=== PATIENT | female | born 1955 | race Caucasian/White ===

== ENCOUNTER → 2020-03-15 15:16 | Outpatient (BNVA) | payer SELFPAY | PROVIDERS: PCP Internal Medicine Medical Oncology; Referring Provider Internal Medicine Medical Oncology; Visit Provider Internal Medicine Gastroenterology | DX: Z76.89 Persons encountering health services in other specified circumstances (principal) ==

== ENCOUNTER 2023-06-20 14:07 | Outpatient (AMB) | payer MEDICARE, SELFPAY ==
--- NOTE | 2023-06-20 14:28 | MHC.OFFVIS ---
Intake Intake Visit Reasons: Nausea/weight loss Intake Note: Patient new consult for nauseas/weight loss. Patient cc: Nauseas, gassy on and off, heartburn, Sara, and between diarrhea and constipation. Wood Heel Attacher Required: No Allergies oxycodone [OXYCODONE] Allergy (Intermediate, Verified 06/20/23 14:23) DIZZY/NAUSEA Medication List - Last Reconciled 06/20/23 by Brandy Willis PA-C atenolol 100 mg PO DAILY bupropion HCl 100 mg PO DAILY ibuprofen 800 mg PO Q8H metformin 500 mg PO DAILY ropinirole 1 mg PO BID sertraline 100 mg PO Q24H simvastatin 40 mg PO BEDTIME warfarin (Jantoven) 5 mg PO DAILY HPI HPI Comments History of Present Illness Details [phone] A 68-year-old diabetic female on metformin long-term referred with nausea and weight loss unable to present in the office today has requested tele visit. She has had diarrhea since 04/04 On history or diarrhea as well as weight loss. However she admits she is very depressed taking antidepressants have affected her appetite She increase dose of antidepressant-in the last 3 or 4 weeks, she has no S/H/I.She had a friend at her home with her (she spoke to her in back round) She admits she would small portions she does not get nausea- she is happy losing wt- she is overwt- She had been taking Benefiber- She does take Imodium for diarrhea that is helpful she uses when she goes out. She can have 3-4 loose stools a day-she is taking metformin since 2013 She had last seen Dr. Sotelo in 2019 4 IBS/diarrhea She had a colonoscopy 07/2017-for history of polyps as well as diarrhea-biopsies negative for H pylori, negative for microscopic colitis She had a colonoscopy normal August 2018-while she was admitted for a fractured hip prior to going to rehab due to positive blood stool. [facility] Medical History (Updated 06/22/23 @ 13:14 by Brandy Willis PA-C) Tubular adenoma of colon On anticoagulant therapy Hx of pulmonary embolus Anxiety and depression Hyperlipidemia Hypertension Irritable bowel syndrome with diarrhea Surgical History H/O esophagogastroduodenoscopy H/O colonoscopy Family History Father Hypertension Macular degeneration Mother Polio Diabetes Hypertension Maternal Grandmother Cancer Social History Household Members: Friend(s) Housing: House Alcohol intake: current Alcohol intake frequency: does not drink Review of Systems Card Denies chest pain and Denies dyspnea Resp Denies dyspnea GI Denies abdominal pain, Reports diarrhea and Reports nausea Assessment & Plan Assessment & Plan (1) Irritable bowel syndrome with diarrhea: Comment: HX unclear- symptoms- inconsistent- Code(s): K58.0 - Irritable bowel syndrome with diarrhea (2) Weight loss: Comment: depressed- typically doesn't eat when depressed- MLC- Code(s): R63.4 - Abnormal weight loss Plan stool studies update labs Orders: Orders GI Panel 06/20/23 R19.7 - Diarrhea, unspecified Comprehensive Met. Panel 06/20/23 K58.9 - Irritable bowel syndrome without diarrhea Thyroid Stimulating Hormone 06/20/23 R19.8 - Other specified symptoms and signs involving the digestive system and abdomen Transglutaminase IgA 06/20/23 R19.7 - Diarrhea, unspecified CDiff Gene PCR 06/20/23 R19.7 - Diarrhea, unspecified Complete Blood Count Auto Diff 06/20/23 K52.9 - Noninfective gastroenteritis and colitis, unspecified Endomysial IgA rflx Titer 06/20/23 K58.0 - Irritable bowel syndrome with diarrhea, R63.4 - Abnormal weight loss Patient Instructions: A 68 y/o female- chronic diarrhea- sx somewhat inconsistent- will get stool studies labs f/u with pcp-for non GI encouraged to call with questions or concerns Telehealth Telehealth Location of provider rendering services: practice address Location of patient: address on file Patient Identification confirmed using: Name, : Yes Telehealth method: voice only Patient verbally consented to treatment: Yes Patient verbally consented to billing insurance company: Yes Patient informed of any privacy concerns related to visit: Yes Minutes spent on Phone/Video with Pt.: 30 Coding Level of Care Code Tele New Pt Level 3 (05294) Diagnoses Irritable bowel syndrome with diarrhea K58.0 Weight loss R63.4 Time Spent (min) 25
== END 2023-06-20 15:31 | disposition home or self-care (01) ==
LOC: HO.HGI 14:07
PROVIDERS: PCP Internal Medicine Medical Oncology; Visit Provider Physician Assistant
DX: K58.0 Irritable bowel syndrome with diarrhea (principal); R63.4 Abnormal weight loss
CPT/HCPCS: 99443

== ENCOUNTER → 2023-06-20 14:07 | Outpatient (BNVA) | payer MEDICARE, SELFPAY | PROVIDERS: PCP Internal Medicine Medical Oncology; Visit Provider Physician Assistant ==

== ENCOUNTER 2023-06-27 15:55 | Outpatient (REF) | payer MEDICARE, SELFPAY ==
[2023-06-27 16:20] LABS: MANUAL DIFF FLAG NO
[2023-06-27 17:26] LABS: Basophils Percent Auto 0.5 % (0-2); Eosinophils Absolute Auto 0.1 X10*3/uL (0.0-0.4); Hematocrit 43.3 % (37.0-47.0); Imm Gran Abs Auto 0.05 X10*3/uL (0.00-0.03); Imm Gran Pct Auto 0.6 % (0.0-0.4); Lymphocytes Absolute Auto 1.4 X10*3/uL (1.2-4.9); Lymphocytes Percent Auto 16.2 % (20-40); Mean Corpuscular HGB Conc 34.6 g/dl (31.0-35.0); Mean Corpuscular Hemoglobin 29.4 pg (27.0-33.0); Mean Corpuscular Volume 84.9 fL (80.0-98.0); Mean Platelet Volume 10.8 fL (9.4-12.3); Monocytes Absolute Auto 0.5 X10*3/uL (0.1-1.2); Monocytes Percent Auto 6.1 % (2-11); Neutrophils Absolute Auto 6.6 x10*3/uL (2.0-8.3); Neutrophils Percent Auto 75.6 % (45-73); Platelet Count 172 X10*3/uL (160-400); Red Cell Distribution Width 13.3 % (11.0-16.0); White Blood Count 8.7 X10*3/uL (4.8-10.8)
[2023-06-27 18:06] LABS: Erythrocyte Sedimentation Rate 8 MM/HR (0-20)
[2023-06-27 18:14] LABS: Alanine Aminotransferase 17 U/L (0-31); Alkaline Phosphatase 78 U/L (39-117); Anion Gap 17 (12-20); Aspartate Amino Transferase 19 U/L (5-31); Bilirubin Total 0.9 mg/dL (0.0-1.0); Blood Urea Nitrogen 25 mg/dL (9-16); Calcium 9.6 mg/dL (8.4-10.2); Carbon Dioxide 20 mmol/L (22-29); Chloride 105 mmol/L (96-108); Estimated Glomerular Filt Rate 27; Glucose Random 159 mg/dL (60-115); Sodium 138 mmol/L (135-145); Total Protein 7.4 g/dL (6.5-8.0)
[2023-06-27 18:33] LABS: Thyroid Stimulating Hormone 2.88 uIU/mL (0.32-4.0)
[2023-06-28 21:44] LABS: Transglutaminase IgA <1.0 U/mL
[2023-06-30 16:38] LABS: Endomysial IgA Antibody Negative (Negative)
== END 2023-06-27 15:56 | disposition home or self-care (01) ==
LOC: HO.LAB 15:55
PROVIDERS: Absent Provider Internal Medicine Medical Oncology; PCP Internal Medicine Medical Oncology; Visit Provider Physician Assistant
DX: K58.0 Irritable bowel syndrome with diarrhea (principal); E66.9 Obesity, unspecified; R63.4 Abnormal weight loss; E03.9 Hypothyroidism, unspecified; E11.9 Type 2 diabetes mellitus without complications; K52.9 Noninfective gastroenteritis and colitis, unspecified; R19.8 Other specified symptoms and signs involving the digestive system and abdomen
CPT/HCPCS: 36415; 80053; 84443; 85025; 85652; 86231; 86364

== ENCOUNTER 2023-09-20 13:24 | Outpatient (REF) | payer MEDICARE, SELFPAY | END 2023-09-20 13:25 | disposition home or self-care (01) | LOC: HO.LNP 13:24 | PROVIDERS: Visit Provider Internal Medicine Medical Oncology | DX: R07.0 Pain in throat (principal) | CPT/HCPCS: 87070 ==

== ENCOUNTER 2023-09-27 17:10 | Outpatient (REF) | payer MEDICARE, SELFPAY ==
[2023-09-27 18:33] LABS: CDiff Gene PCR NEGATIVE (Negative)
[2023-09-28 11:07] LABS: Adenovirus F 40/41 Not Detected (Not Detect.); Astrovirus Not Detected (Not Detect.); Campylobacter Not Detected (Not Detect.); Cryptosporidium Not Detected (Not Detect.); Cyclospora cayetanensis Not Detected (Not Detect.); E. coli EAEC Not Detected (Not Detect.); E. coli EPEC Not Detected (Not Detect.); E. coli ETEC Not Detected (Not Detect.); E. coli STEC Not Detected (Not Detect.); Entamoeba histolytica Not Detected (Not Detect.); Giardia lamblia Not Detected (Not Detect.); Norovirus GI/GII Not Detected (Not Detect.); Plesiomonas shigelloides Not Detected (Not Detect.); Rotavirus A Not Detected (Not Detect.); Salmonella Not Detected (Not Detect.); Sapovirus Not Detected (Not Detect.); Shigella sp./EIEC Not Detected (Not Detect.); Vibrio Not Detected (Not Detect.); Vibrio Cholerae Not Detected (Not Detect.); Yersinia enterocolitica Not Detected (Not Detect.)
== END 2023-09-27 17:11 | disposition home or self-care (01) ==
LOC: HO.LNP 17:10
PROVIDERS: Visit Provider Physician Assistant
DX: R19.7 Diarrhea, unspecified (principal)
CPT/HCPCS: 87493; 87507

== ENCOUNTER 2025-02-03 14:08 | Outpatient (AMB) | payer MEDICARE, SELFPAY ==
--- OUTSIDE RECORDS SUMMARY | 2024-07-11 06:09 | XMS_ITS ---
Author Organization Bravo Antonio III, MD Address [address] [place] [address] [place] [address] Care Team Providers Care Lead Sustainability Specialist Name Role Phone Dr. Bravo Antonio III Primary Care Provider REASON FOR VISIT Rx Refill Medications Medication SIG (Take, Route, Fr equency, Duration) Notes Start Date End Date Status Loperamide HCl 2 MG 1 capsule Orally Four times a day for 30 days As needed 07/11/2024 01/07/2025 Active Social History Sex Assigned At : Social History Observation Description Sex Assigned At Female Encounters Encounter Location Date Provider Diagnosis Bravo Antonio III, MD [address] [place] [address] [address] [place] [facility] [place] [address] 07/11/2024 Bravo Antonio Plan Of Treatment Medication Medication Name Sig Start Date Stop Date Notes Loperamide HCl 2 MG 1 capsule Orally Fou r times a day for 30 days 07/11/2024 01/07/2025 Next Appt Details Provider Name:Bravo Antonio , 03/25/2025 02:00:00 PM, [address] [place] [address] [place], [address], Progress Notes * Pramod APODACA: [birth year] (69 yo F)Acc No.[id number]:07/11/2024 Patient: Krupa DANIEL :1955 A ge:69 Y S ex:Female Address:[address] [place] [phone] * Refills Start Loperamide HCl Capsule, 2 MG, Orally, 120 Capsule, 1 capsule, Four times a day, 30 days, Refills=5 * true * Date: Generated for Gill navarro/Vianey/Yenniitting on: 07:01 PM EDT
--- OUTSIDE RECORDS SUMMARY | 2024-09-04 06:08 | XMS_ITS ---
Author Organization Bravo Antonio III, MD Address [address] [place] [address] [place] [address] Care Team Providers Care Pipe Welder Name Role Phone Dr. Bravo Antonio III Primary Care Provider [phone] REASON FOR VISIT PA needed for simvastatin Social History Sex Assigned At : Social History Observation Description Sex Assigned At Female Encounters Encounter Location Date Provider Diagnosis Bravo Antonio III, MD [address] [place] [address] [place] [address] 09/04/2024 Bravo Antonio Plan Of Treatment Next Appt Details Provider Name:Bravo Antonio , 03/25/2025 02:00:00 PM, [address] [place] [address] [place], [address], Progress Notes * Warner METCALFaDOB: [birth year] (69 yo F)Acc No.[id number]:09/04/2024 Patient: Krupa DANIEL :1955 A ge:69 Y S ex:Female Address:[address] [place] [phone] * true * Date: Generated for [facility]/Faxing/eTransmitting on: 07:02 PM EDT
--- OUTSIDE RECORDS SUMMARY | 2024-09-29 09:22 | XMS_ITS ---
Author Organization Bravo Antonio III, MD Address [address] [place] [address] [place] [address] Care Team Providers Care Underground Foreman Name Role Phone Dr. Bravo Antonio III Primary Care Provider REASON FOR VISIT PA approval Social History Sex Assigned At : Social History Observation Description Sex Assigned At Female Encounters Encounter Location Date Provider Diagnosis Bravo Antonio III, MD [address] [place] [address] [place] [address] 09/29/2024 Bravo Antonio Plan Of Treatment Next Appt Details Provider Name:Bravo Antonio , 03/25/2025 02:00:00 PM, [address] [place] [address] [place], [address], Progress Notes * Warner METCALFHowardB: [birth year] (69 yo F)Acc No.[id number]:09/29/2024 Patient: Krupa DANIEL :1955 A ge:69 Y S ex:Female Address:[address] [place] [phone] * true * Date: Generated for [facility]/Faxing/eTransmitting on: 07:01 PM EDT
--- OUTSIDE RECORDS SUMMARY | 2024-10-03 09:31 | XMS_ITS ---
Author Organization Bravo Antonio III, MD Address [address] [place] [address] [place] [address] Care Team Providers Care Air Conditioning Engineer Name Role Phone Dr. Bravo Antonio III Primary Care Provider REASON FOR VISIT Urine & Mammo Social History Sex Assigned At : Social History Observation Description Sex Assigned At Female Encounters Encounter Location Date Provider Diagnosis Bravo Antonio III, MD [address] [place] [address] [place] [phone] 10/03/2024 Bravo Antonio Plan Of Treatment Next Appt Details Provider Name:Bravo Antonio , 03/25/2025 02:00:00 PM, [address] [place] [address] [place], [address], Progress Notes * CONSTANZAWarneraDOB: [birth year] (69 yo F)Acc No.[id number]:10/03/2024 Patient: Krupa DANIEL :1955 A ge:69 Y S ex:Female Address:[address] [place] [phone] * true * Date: Generated for [facility]/Faxing/eTransmitting on: 07:01 PM EDT
--- OUTSIDE RECORDS SUMMARY | 2024-10-08 11:30 | XMS_ITS ---
Author Organization Bravo Antonio III, MD Address [address] [place] [address] [address] [place] [phone] Care Team Providers Care Electrifier Operator Name Role Phone Dr. Bravo Antonio III Primary Care Provider [phone] Allergies Allergen (clinical drug ingredient) Drug/Non Drug Allergy documented on EMR Reaction Allergy Type Onset Date Status Iodine-Potassium Iodide Lips burn Drug Allergy Active REASON FOR VISIT Hypertension, Depression, History of pulmonary embolism, Anticoagulation, Lumbar radiculopathy, Hyperlipidemia, Diabetes, Hypothyroidism Medications Medication SIG (Take, Route, Frequency, Duration) Notes Start Date End Date Status Omeprazole 20 MG 1 capsule 30 minutes before morning meal Orally Once a day Active Sertraline HCl 100 MG 3 tablets`` Orally Once a day 05/16/2023 Active buPROPion HCl ER (XL) 300 MG 1 tablet in the morning Orally Once a day 05/16/2023 Active rOPINIRole HCl 1 MG 1 tablet 1 to 3 hour s before bedtime Orally Once a day Active Warfarin Sodium 5mg 1 tablet Orally Once a day Active Atenolol 100 MG TAKE ONE TABLET BY M OUTH EVERY DAY Active Loperamide HCl 2 MG 1 capsule Orally Four times a day As needed 07/11/2024 Active Latanoprost 0.005 % INSTILL ONE DROP IN EACH EYE AT BEDTIME Ophthalmic Active ibuprofen 1 tab Oral Active Vitamin D 1000 UNIT 1 tablet Orally Once a day 01/20/2019 Active Omeprazole 20 MG 1 capsule 30 minutes before morning meal Orally Once a day Active Simvastatin 40mg one tablet Orally 2 tablets (80mg) daily Active metFORMIN HCl 500 MG TAKE ONE TABLET BY MOUTH EVERY DAY Active Fluticasone Propionate 50 MCG/ACT 1 spray in each nostril Nasally Twice a day Active Jantoven 5 MG TAKE ONE TABLET BY M OUTH EVERY DAY Active Probiotic 1-250 BILLION-MG as directed Orally Active Social History Tobacco Use: Social History Observation Description Date Details (start date - stop date) Never Smoker NA - NA Sex Assigned At : Social History Observation Description Sex Assigned At Female Tobacco Use/Smoking Question Answer Notes Patient is a nonsmoker Additional Findings: Tobacco Non-User Aggressive non-smoker Vital Signs Temperature 98.2 degrees Fahrenheit 10/09/19 Blood pressure systolic 140 mm Hg 10/09/19 Blood pressure diastolic 80 mm Hg 025 Heart Rate 62 /min 10/08/2024 Respiratory Rate 16 /min 10/08/2024 Height 74 in 10/08/2024 Weight 229 lbs 10/08/2024 BMI 29.4 kg/m2 10/08/2024 Oximetry 96 % 10/08/2024 Encounters Encounter Location Date Provider Diagnosis Bravo Antonio III, MD [address] [place] [address] [place] [address] 10/08/2024 Bravo Antonio Essential hypertensi on I10 ; Type 2 diabetes mellitus without complication, without long-term current use of insulin E11.9 ; Hypothyroid E03.9 ; Hyperlipidemia type II E78.01 ; Overweight (BMI 25.0-29.9) E66.3 and Vitamin D deficiency, unspecified E55.9 Assessments Encounter Date Diagnosis (ICD Code) Assessment Notes Treat ment Notes Treatment Clinical Notes 10/08/2024 Essential hypertension (ICD-10 - I10) Her blood pressure today was 140/80. She has lost 6 pounds. We discussed sodium restriction. Her current medications were continued. On appointment given her to return to the office after a brief follow-up to measure her blood pressure again. 10/08/2024 Type 2 diabetes mellitus without complication, without long-term current use of insulin (ICD-10 - E11.9) She has been compliant with her medications. She has lost 6 pounds. Comprehensive blood work including a hemoglobin A1c and microalbumin and fasting glucose and lipid profile were ordered today. 10/08/2024 Hypothyroid (ICD-10 - E03.9) She appears to be euthyroid. Thyroid function tests were ordered today. 10/08/2024 Hyperlipidemia type II (ICD-10 - E78.01) She has lost 6 pounds. Comprehensive blood work with fasting lipid profile was ordered today. 10/08/2024 Overweight (BMI 25.0-29.9) (ICD-10 - E66.3) She has lost 6 pounds and is now overweight, not obese. Her body mass index is 29. We discussed ways for which she could continue her weight loss. 10/08/2024 Vitamin D deficiency , unspecified (ICD-10 - E55.9) She was continued on her supplementation. Plan Of Treatment Medication Medication Name Sig Start Date Stop Date Notes Omeprazole 20 MG 1 capsule 30 minutes before morning meal Orally Once a day Sertraline HCl 100 MG 3 tablets`` Orally Once a day 05/16/2023 buPROPion HCl ER (XL) 300 MG 1 tablet in the morning Orally Once a day 05/16/2023 rOPINIRole HCl 1 MG 1 tablet 1 to 3 hour s before bedtime Orally Once a day Warfarin Sodium 5mg 1 tablet Orally Once a day Atenolol 100 MG TAKE ONE TABLET BY M OUTH EVERY DAY Loperamide HCl 2 MG 1 capsule Orally Fou r times a day 07/11/2024 Latanoprost 0.005 % INSTILL ONE DROP IN EACH EYE AT BEDTIME Ophthalmic ibuprofen 1 tab Oral Vitamin D 1000 UNIT 1 tablet Orally Once a day 01/20/2019 Omeprazole 20 MG 1 capsule 30 minutes before morning meal Orally Once a day Simvastatin 40mg one tablet Orally 2 tablets (80mg) daily metFORMIN HCl 500 MG TAKE ONE TABLET BY MOUTH EVERY DAY Fluticasone Propionate 50 MCG/ACT 1 spray in each nostril Nasally Twice a day Jantoven 5 MG TAKE ONE TABLET BY M OUTH EVERY DAY Probiotic 1-250 BILLION-MG as directed Orally Pending Test Test Name Order Date PROFILE, FASTING (COMPREHENSIVE METABOLI C) 10/08/2024 TSH (THYROID STIMULATING HORMONE) 2024 CBC w DIFF 10/08/2024 Lipid Panel 10/08/2024 Free T4 (Free Thyroxine) 10/08/2024 Microalbumin, Random 10/08/2024 Hemoglobin A1c 10/08/2024 Next Appt Details Follow Up: As Scheduled, Destini son: Annual Exam Provider Name:Bravo Talley Marisela , 03/25/2025 02:00:00 PM, [address] [place] [address] [address], [place], [address], Progress Notes * Tristen METCALFB: [birth year] (69 yo F)Acc No.[id number]:10/08/2024 Progress Notes Patient: Krupa DANIEL Provider: Rubi Antonio MD :1955 A ge:69 Y S ex:Female Date:10/08/2024 Address:[address] [place], [place] [phone] Subjective: * Chief Complaints: * H ypertensionDepressionHistory of pulmonary embolismAnticoagulationLumbar radiculopathyHyperlipidemiaDiabetesHypothyroidism * HPI: C OVID-19 Screening: S he returns for medical management. She has been compliant with all of her medication.? She is anticoagulated and has had no bleeding. She denies any chest pain or shortness of breath. Her depression is well controlled and she seems happy today. The back pain is present but minimal and she is able to conduct all of the activities of daily life. He is trying to lose weight and control her diabetes. She has had no difficulty breathing a rate in the recent hot weather. Questions H ave you had any new onset fever, chills, cough, congestion, sore throat, shortness of breath, muscle aches? N o * ROS: G eneral/Constitutional: pain L ow back, otherwise only normal aches and pains. C hills d enies. F atigue a dmits. F ever d enies. E NT: Decreased hearing d enies. R espiratory: Cough d enies. C ardiovascular: Chest pain with exertion d enies. D yspnea on exertion?denies. S hortness of breath d enies. G astrointestinal: Constipation o ccasional. D ecreased appetite d enies. D iarrhea d enies. H eartburn d enies. N ausea d enies. R ectal bleeding d enies. V omiting d enies. H ematology: bruising d enies. p etechiae d enies. S wollen glands n one have been noted. G enitourinary: Frequent urination d enies. M usculoskeletal: Muscle aches d enies. P ainful joints L umbar spine. S ciatica d enies. W eakness d enies. S kin: Itching d enies. R juani d enies. S kin lesion(s)?denies. N eurologic: Difficulty speaking d enies. D izziness d enies.?Headache d enies. L ow back pain t hat is chronic. P sychiatric: Depressed mood w hich is mild. * Medical History: * Surgical History: e xtraction wisdom teeth cataract surgery both eyes 04/2019No history * Hospitalization/Major Diagno stic Procedure: Bailey capone 03/2020No history * Family History: F ather: 85 yrs, hernia, dementia, perforated viscus. M other: 87 yrs, adult onset diabetes mellitus, post polli syndrome, diagnosed with DM. 1 brother(s) , 1 sister(s) - healthy. . There is no family history of thrombophilia.She is not aware of any family history of mental illness or substance use disorder or addiction. * Social History: T obacco Use: T obacco Use/Smoking P atient is a n onsmoker A dditional Findings: Tobacco Non-User A ggressive non-smoker S he is single and has no children. She lives in [place] and goes to [facility]. She enjoys arts and crafts and reading. She was born in [place]. * Medications: T akingibuprofen 1 tab Oral Vitamin D 1000 UNIT Tablet 1 tablet Orally Once a day Latanoprost 0.005 % Solution INSTILL ONE DROP IN EACH EYE AT BEDTIME Ophthalmic Warfarin Sodium 5mg tab 1 tablet Orally Once a day rOPINIRole HCl 1 MG Tablet 1 tablet 1 to 3 hours before bedtime Orally Once a day Sertraline HCl 100 MG Tablet 3 tablets`` Orally Once a day buPROPion HCl ER (XL) 300 MG Tablet Extended Release 24 Hour 1 tablet in the morning Orally Once a day Omeprazole 20 MG Capsule Delayed Release 1 capsule 30 minutes before morning meal Orally Once a day Probiotic 1- 250 BILLION-MG Capsule as directed Orally Omeprazole 20 MG Capsule Delayed Release 1 capsule 30 minutes before morning meal Orally Once a day Simvastatin 40mg tab one tablet Orally 2 tablets (80mg) daily Loperamide HCl 2 MG Capsule 1 capsule Orally Four times a day As needed, stop date 01/07/2025tenolol 100 MG Tablet TAKE ONE TABLET BY MOUTH EVERY DAY Fluticasone Propionate 50 MCG/ACT Suspension 1 spray in each nostril Nasally Twice a day metFORMIN HCl 500 MG Tablet TAKE ONE TABLET BY MOUTH EVERY DAY Jantoven 5 MG Tablet TAKE ONE TABLET BY MOUTH EVERY DAY Medication List reviewed and reconciled with the patientTaking ibuprofen 1 tab Oral Taking Vitamin D 1000 UNIT Tablet 1 tablet Orally Once a day Taking Latanoprost 0.005 % Solution INSTILL ONE DROP IN EACH EYE AT BEDTIME Ophthalmic Taking Warfarin Sodium 5mg tab 1 tablet Orally Once a day Taking rOPINIRole HCl 1 MG Tablet 1 tablet 1 to 3 hours before bedtime Orally Once a day Taking Sertraline HCl 100 MG Tablet 3 tablets`` Orally Once a day Taking buPROPion HCl ER (XL) 300 MG Tablet Extended Release 24 Hour 1 tablet in the morning Orally Once a day Taking Omeprazole 20 MG Capsule Delayed Release 1 capsule 30 minutes before morning meal Orally Once a day Taking Probiotic 1-250 BILLION-MG Capsule as directed Orally Taking Omeprazole 20 MG Capsule Delayed Release 1 capsule 30 minutes before morning meal Orally Once a day Taking Simvastatin 40mg tab one tablet Orally 2 tablets (80mg) daily Taking Loperamide HCl 2 MG Capsule 1 capsule Orally Four times a day As needed, stop date 01/07/2025Taking Atenolol 100 MG Tablet TAKE ONE TABLET BY MOUTH EVERY DAY Taking Fluticasone Propionate 50 MCG/ACT Suspension 1 spray in each nostril Nasally Twice a day Taking metFORMIN HCl 500 MG Tablet TAKE ONE TABLET BY MOUTH EVERY DAY Taking Jantoven 5 MG Tablet TAKE ONE TABLET BY MOUTH EVERY DAY Medication List reviewed and reconciled with the patient * Allergies: I odine-Potassium Iodide: Jim verma[Allergies Verified] Objective: * Vitals: H t: 74, Wt:229, BMI:29.4, BP:140/80, HR:62, RR:16, Temp:98.2, Oxygen sat %:96, Ht-cm: 187.96, Wt-k.87. * Examination: G eneral Examination: GENERAL APPEARANCE: p karthik, well nourished, well developed, in no acute distress, calm and relaxed, overweight, woman. HEAD: a traumatic, normocephalic. EYES: e melissa, perrla, anicteric, conjugate. EARS: n ormal. NOSE: s eptum intact. ORAL CAVITY: n ormal, unremarkable. NECK/THYROID: n o jugular venous distention, no carotid bruit, thyroid normal. LYMPH NODES: n o enlarged lymph nodes,spleen normal. SKIN: n o suspicious lesions, anicteric. HEART: n o clicks, gallops, murmurs, or rubs, regular rhythm, S1, S2 normal, no s3, or vascular bruits. LUNGS: c lear to auscultation . BREASTS: N ot examined. ABDOMEN: b owel sounds normal, no ascites, no organomegaly, no mass, overweight. RECTAL EXAM: n ot examined. MUSCULOSKELETAL: e xtremities unremarkable, no clubbing, cyanosis or edema, Limited range of motion lumbar spine. PERIPHERAL PULSES: n ormal. NEUROLOGIC: a lert and oriented, cranial nerves 2-12 grossly intact, deep tendon reflexes 2+ symmetrical, motor strength normal upper and lower extremities, sensory exam intact. PSYCH: a lert, oriented, Depression not evident today. Assessment: * Assessment: 1. E ssential hypertension - I10 (Primary) N otes :Her blood pressure today was 140/80. She has lost 6 pounds. We discussed sodium restriction. Her current medications were continued. On appointment given her to return to the office after a brief follow-up to measure her blood pressure again. 2 . T ype 2 diabetes mellitus without complication, without long-term current use of insulin - E11.9 N otes :She has been compliant with her medications. She has lost 6 pounds. Comprehensive blood work including a hemoglobin A1c and microalbumin and fasting glucose and lipid profile were ordered today. 3 . H ypothyroid - E03.9 N otes :She appears to be euthyroid. Thyroid function tests were ordered today. 4 . H yperlipidemia type II - E78.01 N otes :She has lost 6 pounds. Comprehensive blood work with fasting lipid profile was ordered today. 5 . O verweight (BMI 25.0-29.9) - E66.3 N otes :She has lost 6 pounds and is now overweight, not obese. Her body mass index is 29. We discussed ways for which she could continue her weight loss. 6 . V itamin D deficiency, unspecified - E55.9 N otes :She was continued on her supplementation. Plan: * Treatment: 2. T ype 2 diabetes mellitus without complication, without long-term current use of insulin L AB: PROFILE, FASTING (COMPREHENSIVE METABOLIC) L AB: TSH (THYROID STIMULATING HORMONE) L AB: CBC w DIFF L AB: Lipid Panel L AB: Free T4 (Free Thyroxine) L AB: Microalbumin, Random L AB: Hemoglobin A1c 3. H ypothyroid L AB: PROFILE, FASTING (COMPREHENSIVE METABOLIC) L AB: TSH (THYROID STIMULATING HORMONE) L AB: CBC w DIFF L AB: Lipid Panel L AB: Free T4 (Free Thyroxine) L AB: Microalbumin, Random L AB: Hemoglobin A1c 4. H yperlipidemia type II L AB: PROFILE, FASTING (COMPREHENSIVE METABOLIC) L AB: TSH (THYROID STIMULATING HORMONE) L AB: CBC w DIFF L AB: Lipid Panel L AB: Free T4 (Free Thyroxine) L AB: Microalbumin, Random L AB: Hemoglobin A1c 5. O verweight (BMI 25.0-29.9) L AB: PROFILE, FASTING (COMPREHENSIVE METABOLIC) L AB: TSH (THYROID STIMULATING HORMONE) L AB: CBC w DIFF L AB: Lipid Panel L AB: Free T4 (Free Thyroxine) L AB: Microalbumin, Random L AB: Hemoglobin A1c 6. V itamin D deficiency, unspecified L AB: PROFILE, FASTING (COMPREHENSIVE METABOLIC) L AB: TSH (THYROID STIMULATING HORMONE) L AB: CBC w DIFF L AB: Lipid Panel L AB: Free T4 (Free Thyroxine) L AB: Microalbumin, Random L AB: Hemoglobin A1c 7. O thers Continue Jantoven Tablet, 5 MG, TAKE ONE TABLET BY MOUTH EVERY DAY; C ontinue metFORMIN HCl Tablet, 500 MG, TAKE ONE TABLET BY MOUTH EVERY DAY; C ontinue Fluticasone Propionate Suspension, 50 MCG/ACT, 1 spray in each nostril, Nasally, Twice a day; C ontinue Atenolol Tablet, 100 MG, TAKE ONE TABLET BY MOUTH EVERY DAY; C ontinue Loperamide HCl Capsule, 2 MG, 1 capsule, Orally, Four times a day As needed; C ontinue ibuprofen, 1 tab, Oral; C ontinue Vitamin D Tablet, 1000 UNIT, 1 tablet, Orally, Once a day; C ontinue Latanoprost Solution, 0.005 %, INSTILL ONE DROP IN EACH EYE AT BEDTIME, Ophthalmic; C ontinue Warfarin Sodium tab, 5mg, 1 tablet, Orally, Once a day; C ontinue rOPINIRole HCl Tablet, 1 MG, 1 tablet 1 to 3 hours before bedtime, Orally, Once a day; C ontinue Sertraline HCl Tablet, 100 MG, 3 tablets``, Orally, Once a day; C ontinue buPROPion HCl ER (XL) Tablet Extended Release 24 Hour, 300 MG, 1 tablet in the morning, Orally, Once a day; C ontinue Omeprazole Capsule Delayed Release, 20 MG, 1 capsule 30 minutes before morning meal, Orally, Once a day; C ontinue Probiotic Capsule, 1-250 BILLION-MG, as directed, Orally; C ontinue Omeprazole Capsule Delayed Release, 20 MG, 1 capsule 30 minutes before morning meal, Orally, Once a day; C ontinue Simvastatin tab, 40mg, one tablet, Orally, 2 tablets (80mg) daily. ? * Procedure Codes: 9 4760 MEASURE BLOOD OXYGEN LEVEL * Preventive Medicine: Counseling: C are goal follow-up plan: Counseling for abnormal BMI given Y es Above Normal BMI Follow-up D ietary management education, guidance, and counseling, Dietary needs education, Exercise promotion: strength training, Exercise promotion: stretching, Feeding regime, Giving encouragement to exercise, Lifestyle education regarding diet, Nutrition / feeding management, Nutrition therapy, Prescribed activity/exercise education, Prescribed diet education, Prescribed dietary intake, Special diet education, Weight monitoring , Intervention, Order not done: Medical or Other reason not done DM Care Plan: P atient Lifestyle Goals P atient wants to be able to manage diabetes without too much effort. T reatment Goals B lood Sugars less than < 115.? B arriers n o barriers. S elf-Managment Goals W ork on weight loss, with a goal of losing 1 lb per week. * Follow Up: A s Scheduled (Reason: Annual Exam) * Images: * Sign off status: Completed true * Provider: Rubi Antonio MD Date: 0 10/08/2024 Generated for Gill navarro/Vianey/Ciro on: 1 07:02 PM EDT History and Physical Notes * HPI (History of Present Illness) Category Sub-Category Detail Notes COVID-19 Screening Questions Have you had any new onset fever, chills, cough, congestion, sore throat, shortness of breath, muscle aches?: No Examination Category Sub-Category Detail Notes General Examination GENERAL APPEARANCE: pleasant , well nourished, well developed, in no acute distress, calm and relaxed, overweight, woman HEAD: atraumatic, normocep halic EYES: eomi, perrla, anicte yoli, conjugate EARS: normal NOSE: septum intact NECK/THYROID: no jugular venous di stention, no carotid bruit, thyroid normal HEART: no clicks, gallops, murmurs, or rubs, regular rhythm, S1, S2 normal, no s3, or vascular bruits LUNGS: clear to auscultatio n ABDOMEN: bowel sounds normal, no ascites, no organomegaly, no mass, overweight NEUROLOGIC: alert and oriented, cranial nerves 2-12 grossly intact, deep tendon reflexes 2+ symmetrical, motor strength normal upper and lower extremities, sensory exam intact SKIN: no suspicious lesion s, anicteric PERIPHERAL PULSES: normal BREASTS: Not examined MUSCULOSKELETAL: extremities unremark able, no clubbing, cyanosis or edema, Limited range of motion lumbar spine LYMPH NODES: no enlarged lymph no bhavna,spleen normal RECTAL EXAM: not examined PSYCH: alert, oriented, Dep ression not evident today ORAL CAVITY: normal, unremarkable
--- OUTSIDE RECORDS SUMMARY | 2024-12-11 06:20 | XMS_ITS ---
Author Organization Bravo Antonio III, MD Address [address] [place] [address] [place] [address] Care Team Providers Care Intelligence Support Officer Name Role Phone Dr. Bravo Antonio III Primary Care Provider REASON FOR VISIT Letter Request Social History Sex Assigned At : Social History Observation Description Sex Assigned At Female Encounters Encounter Location Date Provider Diagnosis Bravo Antonio III, MD [address] [place] [address] [place] [address] 12/11/2024 Bravo Antonio Plan Of Treatment Next Appt Details Provider Name:Bravo Antonio , 03/25/2025 02:00:00 PM, [address] [place] [address] [place], [address], Progress Notes * Warner METCALFaDOB: [birth year] (69 yo F)Acc No.[id number]:12/11/2024 Patient: Krupa DANIEL :1955 A ge:69 Y S ex:Female Address:[address] [place] [place] [phone] * true * Date: Generated for [facility] ng/Faxing/eTransmitting on: 07:03 PM EDT
--- OUTSIDE RECORDS SUMMARY | 2025-01-09 13:00 | XMS_ITS ---
Author Organization Bravo Antonio III, MD Address [address] [place] [address] [place] [phone] Care Team Providers Care District Resource Officer Name Role Phone Dr. Bravo Antonio III Primary Care Provider REASON FOR VISIT annual exam Social History Sex Assigned At : Social History Observation Description Sex Assigned At Female Encounters Encounter Location Date Provider Diagnosis Bravo Antonio III, MD [address] [place] [address] [place] [phone] 01/09/2025 Bravo Antonio Plan Of Treatment Next Appt Details Provider Name:Bravo Antonio , 03/25/2025 02:00:00 PM, [address] [place] [address] [place], [address], Progress Notes * Warner METCALFaDOB: [birth year] (69 yo F)Acc No.[id number]:01/09/2025 Progress Notes Patient: Krupa DANIEL Provider: Rubi Antonio MD :1955 A ge:69 Y S ex:Female Date:01/09/2025 Address:[address] [place] [id number] Subjective: * Chief Complaints: * 1 . Annual exam. * Medical History: Objective: * Vitals: Assessment: Plan: * Treatment: * Images: * The named appointment provid er may or may not be the originator of this progress note, and it is not deemed complete until electronically signed by the appointment provider. Sign off status: Pending * Provider: Rubi Antonio MD Date: 0 01/09/2025 Generated for Gill navarro/Vianey/Ciro on: 07:00 PM EDT
--- OUTSIDE RECORDS SUMMARY | 2025-01-14 09:00 | XMS_ITS ---
Author Organization Bravo Antonio III, MD Address [address] [place] [address] [address] [place] [phone] Care Team Providers Care Roll Up Helper Name Role Phone Dr. Bravo Antonio III Primary Care Provider Allergies Allergen (clinical drug ingredient) Drug/Non Drug Allergy documented on EMR Reaction Allergy Type Onset Date Status Iodine-Potassium Iodide Lips burn Drug Allergy Active Reason For Referral Reason diabetic toenail car e evaluate and treatment Diagnosis 1 Type 2 diabetes mayank itus without complication, without long-term current use of insulin (E11.9) Referral Organization Bravo Antonio III, MD Referring Provider First Name Bravo Referring Provider Last Name Marisela Referring Provider Speciality Internal M edicine Referred Provider Specialty Podiatry General Notes Elsy Sommers CMA 01/15 01:51:42 PM > pt will make her own appt and call office with who she is going to then the referral will be faxed to them Referral Priority Routine REASON FOR VISIT Left first toe injury, Hematoma right knee, Anticoagulated, Thrombophilia, Diabetes, Lumbar radiculopathy Medications Medication SIG (Take, Route, Frequency, Duration) Notes Start Date End Date Status Omeprazole 20 MG 1 capsule 30 minutes before morning meal Orally Once a day Active Simvastatin 40mg one tablet Orally 2 tablets (80mg) daily Active Probiotic 1-250 BILLION-MG as directed Orally Active Sertraline HCl 100 MG 3 tablets`` Orally Once a day 05/16/2023 Active buPROPion HCl ER (XL) 300 MG 1 tablet in the morning Orally Once a day 05/16/2023 Active rOPINIRole HCl 1 MG 1 tablet 1 to 3 hour s before bedtime Orally Once a day Active Vitamin D 1000 UNIT 1 tablet Orally Once a day 01/20/2019 Active Latanoprost 0.005 % INSTILL ONE DROP IN EACH EYE AT BEDTIME Ophthalmic Active Warfarin Sodium 5mg 1 tablet Orally Once a day Active Loperamide HCl 2 MG 1 capsule Orally Four times a day As needed 07/11/2024 Active Fluticasone Propionate 50 MCG/ACT 1 spray in each nostril Nasally Twice a day Active Atenolol 100 MG TAKE ONE TABLET BY M OUTH EVERY DAY Active metFORMIN HCl 500 MG TAKE ONE TABLET BY MOUTH EVERY DAY Active ibuprofen 1 tab Oral Active Jantoven 5 MG TAKE ONE TABLET BY M OUTH EVERY DAY Active Social History Tobacco Use: Social History Observation Description Date Details (start date - stop date) Never Smoker NA - NA Sex Assigned At : Social History Observation Description Sex Assigned At Female Tobacco Use/Smoking Question Answer Notes Patient is a nonsmoker Additional Findings: Tobacco Non-User Aggressive non-smoker Problems Problem Type SNOMED Code ICD Code Onset Dates Problem Status W/U Status Risk Notes Problem [id number] Contusion of right knee, initial encounter (S80.01XA) Active confirmed She is unaware of any trauma to the right knee area. There is a large ecchymosis and subcutaneous hematoma in this anticoagulated patient. She will observe it without treatment at this time. It iss expected to resolve slowly. She was reassured. Problem [id number] Laceration of left great toe without foreign body with damage to nail, initial encounter (S91.212A) Active confirmed She accidentally cut the skin instead of her toenail with a clipper. He continues to bleed several hours after the event. She is anticoagulated. Simple pressure in the office over 15 minutes failed to stop the oozing. A pressure bandage was applied which she will leave in place over 24 hours. She will change the bandage tomorrow afternoon and then call the office if it continues to ooze. If so will need cauterization. I have continued the anticoagulation . Vital Signs Temperature 98.2 degrees Fahrenheit 01/15/20 25 Blood pressure systolic 133 mm Hg 01/15/20 25 Blood pressure diastolic 83 mm Hg 025 Heart Rate 71 /min 01/14/2025 Height 74 in 01/14/2025 Weight 222 lbs 01/14/2025 BMI 28.5 kg/m2 01/14/2025 Encounters Encounter Location Date Provider Diagnosis Bravo Antonio III, MD [address] [place] [address] [place] [address] 01/14/2025 Bravo Antonio Laceration of left g reat toe without foreign body with damage to nail, initial encounter S91.212A ; Contusion of right knee, initial encounter S80.01XA ; Thrombophilia D68.59 ; Chronic anticoagulation Z79.01 ; Depressive disorder, not elsewhere classified F32.9 ; Essential hypertension I10 ; Thrombocytopenia D69.6 ; Type 2 diabetes mellitus without complication, without long-term current use of insulin E11.9 and Hypothyroid E03.9 Assessments Encounter Date Diagnosis (ICD Code) Assessment Notes T reatment Notes Treatment Clinical Notes 01/14/2025 Laceration of left great toe without foreign body with damage to nail, initial encounter (ICD-10 - S91.212A) She accidentally cut the skin instead of her toenail with a clipper. He continues to bleed several hours after the event. She is anticoagulated. Simple pressure in the office over 15 minutes failed to stop the oozing. A pressure bandage was applied which she will leave in place over 24 hours. She will change the bandage tomorrow afternoon and then call the office if it continues to ooze. If so will need cauterization. I have continued the anticoagulation. 01/14/2025 Contusion of right knee, initial encounter (ICD-10 - S80.01XA) She is unaware of any trauma to the right knee area. There is a large ecchymosis and subcutaneous hematoma in this anticoagulated patient. She will observe it without treatment at this time. It iss expected to resolve slowly. She was reassured. 01/14/2025 Thrombophilia (ICD-1 0 - D68.59) She has been compliant with her anticoagulant. She has had no venous thromboembolism since her last visit. She has no chest pain and only mild shortness of breath. She has had no bleeding. Current therapy was continued. 01/14/2025 Chronic anticoagulation (ICD-10 - Z79.01) She continues on anticoagulation with no bleeding. She has had no further episodes of venous thromboembolism. 01/14/2025 Depressive disorder, not elsewhere classified (ICD-10 - F32.9) She sounds more so frail I and and less depressed. She says she has been compliant with her medications and her visits to her psychiatrist. She does not sound suicidal today. She denies any intention of harming herself. 01/14/2025 Essential hypertensi on (ICD-10 - I10) Her blood pressure today was 140/80. She has lost 6 pounds. We discussed sodium restriction. Her current medications were continued. On appointment given her to return to the office after a brief follow-up to measure her blood pressure again. 01/14/2025 Thrombocytopenia (ICD-10 - D69.6) The platelet count in May 2022 152,000. She has had no bleeding and is doing well. 01/14/2025 Type 2 diabetes mellitus without complication, without long-term current use of insulin (ICD-10 - E11.9) She has been compliant with her medications. She has lost 6 pounds. Comprehensive blood work including a hemoglobin A1c and microalbumin and fasting glucose and lipid profile were ordered today. 01/14/2025 Hypothyroid (ICD-10 - E03.9) She appears to be euthyroid. Thyroid function tests were ordered today. Plan Of Treatment Medication Medication Name Sig Start Date Stop Date Notes Omeprazole 20 MG 1 capsule 30 minutes before morning meal Orally Once a day Simvastatin 40mg one tablet Orally 2 tablets (80mg) daily Probiotic 1-250 BILLION-MG as directed Orally Sertraline HCl 100 MG 3 tablets`` Orally Once a day 05/16/2023 buPROPion HCl ER (XL) 300 MG 1 tablet in the morning Orally Once a day 05/16/2023 rOPINIRole HCl 1 MG 1 tablet 1 to 3 hour s before bedtime Orally Once a day Vitamin D 1000 UNIT 1 tablet Orally Once a day 01/20/2019 Latanoprost 0.005 % INSTILL ONE DROP IN EACH EYE AT BEDTIME Ophthalmic Warfarin Sodium 5mg 1 tablet Orally Once a day Loperamide HCl 2 MG 1 capsule Orally Fou r times a day 07/11/2024 Fluticasone Propionate 50 MCG/ACT 1 spray in each nostril Nasally Twice a day Atenolol 100 MG TAKE ONE TABLET BY M OUTH EVERY DAY metFORMIN HCl 500 MG TAKE ONE TABLET BY MOUTH EVERY DAY ibuprofen 1 tab Oral Jantoven 5 MG TAKE ONE TABLET BY M OUTH EVERY DAY Pending Test Test Name Order Date PROFILE, FASTING (COMPREHENSIVE METABOLI C) 01/14/2025 CBC w DIFF 01/14/2025 Lipid Panel 01/14/2025 Microalbumin, Random 01/14/2025 Hemoglobin A1c 01/14/2025 Referrals Referral Date Details 01/14/2025 01/14/2025, diabetic toenail care evaluate and treatment Next Appt Details Follow Up: as scheduled, Destini son: review labs Provider Name:Bravo Antonio , 03/25/2025 02:00:00 PM, [address] [place] [address], [phone], Progress Notes * Warner METCALFHowardB: [birth year] (69 yo F)Acc No.[id number]:01/14/2025 Progress Notes Patient: Krupa DANIEL Provider: Rubi Antonio MD :1955 A ge:69 Y S ex:Female Date:01/14/2025 Address:[address] [place], [place] [phone] Subjective: * Chief Complaints: * L eft first toe injuryHematoma right kneeAnticoagulatedThrombophiliaDiabetesLumbar radiculopathy * HPI: C OVID-19 Screening: She presents with 2 significant problems. She is not aware of any trauma but she has a lump on the outside of the lower right knee surrounded by a large purple green ecchymosis. She is concerned that this might be a lipoma or a tumor. On evaluation it was a hematoma with intact skin. She is anticoagulated with Eliquis. This did not represent a significant problem. She had a bandage on her left first toe. She says she cut it when she was trying to cut her toenail. The bandage was removed there was bright red bleeding from laceration on the tip of the toe measuring about 3 mm. This was about 1 mm below the toenail which was quite thickened. Pressure was applied but the bleeding did not stop. A pressure bandage was applied and wrapped. She was told to leave this in place for 18 hours and then remove it. If it was still bleeding she was to call me or go to the local emergency room for cauterization. Questions H ave you had any new onset fever, chills, cough, congestion, sore throat, shortness of breath, muscle aches? N o * ROS: G eneral/Constitutional: pain L umbar spine. C hills d enies. F atigue?admits. F ever d enies. E NT: Decreased [...] V omiting d enies. H ematology: bruising E cchymosis below right knee lateral. p etechiae d enies. S wollen glands n one have been noted. G enitourinary: Frequent urination a t night. M usculoskeletal: Muscle aches d enies. P ainful joints d enies. S ciatica d enies. W eakness d enies. S kin: Itching d enies. R juani d enies. S kin lesion(s)?Small bleeding laceration at the tip of her left first toe 1 mm below the nail. ? N eurologic: Difficulty speaking d enies. D izziness d enies.?Headache d enies. L ow back pain d enies. P sychiatric: Depressed mood d enies. * Medical History: * Surgical History: e xtraction wisdom teeth cataract surgery both eyes 04/2019No history * Hospitalization/Major Diagno stic Procedure: K idney stone 03/2020No history * Family History: F ather: [...] and has no children. She lives in [place] and goes to [employer]. She enjoys arts and crafts and reading. She was born in [place]. * Medications: T akingJantoven 5 MG Tablet TAKE ONE TABLET BY MOUTH EVERY DAY metFORMIN HCl 500 MG Tablet TAKE ONE TABLET BY MOUTH EVERY DAY Fluticasone Propionate 50 MCG/ACT Suspension 1 spray in each nostril Nasally Twice a day Atenolol 100 MG Tablet TAKE ONE TABLET BY MOUTH EVERY DAY Loperamide HCl 2 MG Capsule 1 capsule Orally Four times a day As neededibuprofen 1 tab Oral Vitamin D 1000 UNIT [...] in the morning Orally Once a day Probiotic 1-250 BILLION-MG Capsule as directed Orally Omeprazole 20 MG Capsule Delayed Release 1 capsule 30 minutes before morning meal Orally Once a day Simvastatin 40mg tab one tablet Orally 2 tablets (80mg) daily Taking Jantoven 5 MG Tablet TAKE ONE TABLET BY MOUTH EVERY DAY Taking metFORMIN HCl 500 MG Tablet TAKE ONE TABLET BY MOUTH EVERY DAY Taking Fluticasone Propionate 50 MCG/ACT Suspension 1 spray in each nostril Nasally Twice a day Taking Atenolol 100 MG Tablet TAKE ONE TABLET BY MOUTH EVERY DAY Taking Loperamide HCl 2 MG Capsule 1 capsule Orally Four times a day As neededTaking ibuprofen 1 tab Oral Taking Vitamin D [...] the morning Orally Once a day Taking Probiotic 1-250 BILLION-MG Capsule as directed Orally Taking Omeprazole 20 MG Capsule Delayed Release 1 capsule 30 minutes before morning meal Orally Once a day Taking Simvastatin 40mg tab one tablet Orally 2 tablets (80mg) daily DiscontinuedOmeprazole 20 MG Capsule Delayed Release 1 capsule 30 minutes before morning meal Orally Once a day Medication List reviewed and reconciled with the patientDiscontinued Omeprazole 20 MG Capsule Delayed Release 1 capsule 30 minutes before morning meal Orally Once a day Medication List reviewed and reconciled with the patient * Allergies: I odine-Potassium Iodide: Lips burnno[Allergies Verified] Objective: * Vitals: H t: 74, Wt:222, BMI:28.5, BP:133/83, HR:71, Temp:98.2, Ht-cm: 187.96, Wt-k.7. * Examination: G eneral Examination: GENERAL APPEARANCE: p leasant, well nourished, well developed, in no acute distress, calm and relaxed: overweight: woman. HEAD: a traumatic, normocephalic. EYES: e [...] sounds normal, no ascites, no organomegaly, no mass: overweight. RECTAL EXAM: n ot examined. MUSCULOSKELETAL: e xtremities unremarkable, no clubbing, cyanosis or edema, Large ecchymosis skin over right knee laterally yellowish-green in the center of which is a 3 cm hematoma under the skin, 2 mm laceration tip of left first toe oozing bright red blood. PERIPHERAL PULSES: n ormal. NEUROLOGIC: a lert and oriented, cranial nerves 2-12 grossly intact, deep tendon reflexes 2+ symmetrical, motor strength normal upper and lower extremities, sensory exam intact. PSYCH: a lert, oriented. Assessment: * Assessment: 1. L aceration of left great toe without foreign body with damage to nail, initial encounter - S91.212A (Primary) N otes :She accidentally cut the skin instead of her toenail with a clipper. He continues to bleed several hours after the event. She is anticoagulated. Simple pressure in the office over 15 minutes failed to stop the oozing. A pressure bandage was applied which she will leave in place over 24 hours. She will change the bandage tomorrow afternoon and then call the office if it continues to ooze. If so will need cauterization. I have continued the anticoagulation. 2 . C ontusion of right knee, initial encounter - S80.01XA N otes :She is unaware of any trauma to the right knee area. There is a large ecchymosis and subcutaneous hematoma in this anticoagulated patient. She will observe it without treatment at this time. It iss expected to resolve slowly. She was reassured. 3 . T hrombophilia - D68.59 N otes :She has been compliant with her anticoagulant. She has had no venous thromboembolism since her last visit. She has no chest pain and only mild shortness of breath. She has had no bleeding. Current therapy was continued. 4 . C hronic anticoagulation - Z79.01 N otes :She continues on anticoagulation with no bleeding. She has had no further episodes of venous thromboembolism. 5 . D epressive disorder, not elsewhere classified - F32.9 N otes :She sounds more so frail I and and less depressed. She says she has been compliant with her medications and her visits to her psychiatrist. She does not sound suicidal today. She denies any intention of harming herself. 6 . E ssential hypertension - I10 N otes :Her blood pressure today was 140/80. She has lost 6 pounds. We discussed sodium restriction. Her current medications were continued. On appointment given her to return to the office after a brief follow-up to measure her blood pressure again. 7 . T hrombocytopenia - D69.6 N otes :The platelet count in May 2022 152,000. She has had no bleeding and is doing well. 8 . T ype 2 diabetes mellitus without complication, without long-term current use of insulin - E11.9 N otes :She has been compliant with her medications. She has lost 6 pounds. Comprehensive blood work including a hemoglobin A1c and microalbumin and fasting glucose and lipid profile were ordered today. 9 . H ypothyroid - E03.9 N otes :She appears to be euthyroid. Thyroid function tests were ordered today. Plan: * Treatment: 2. E ssential hypertension L AB: PROFILE, FASTING (COMPREHENSIVE METABOLIC) L AB: CBC w DIFF L AB: Lipid Panel L AB: Microalbumin, Random L AB: Hemoglobin A1c 3. T ype 2 diabetes mellitus without complication, without long-term current use of insulin Referral To:Podiatry Reason:diabetic toenail care evaluate and treatment 4. O thers Continue Jantoven Tablet, 5 MG, [...] morning, Orally, Once a day; C ontinue Probiotic Capsule, 1-250 BILLION-MG, as directed, Orally; C ontinue Omeprazole Capsule Delayed Release, 20 MG, 1 capsule 30 minutes before morning meal, Orally, Once a day; C ontinue Simvastatin tab, 40mg, one tablet, Orally, 2 tablets (80mg) daily. * Procedure Codes: * Preventive Medicine: Counseling: C are goal follow-up plan: Counseling for abnormal BMI given Y es DM Care Plan: P atient Lifestyle Goals P atient wants to be able to manage diabetes without too much effort. T reatment Goals B lood Sugars less than < 115, HbA1C < 7.0. B arriers n o barriers. S elf-Managment Goals W ork on weight loss, with a goal of losing 1 lb per week. * Follow Up: a s scheduled (Reason: review labs) * Images: * Sign off status: Completed true * Provider: Rubi Antonio MD Date: Generated for Gill navarro/Vianey/Yenniitting on: 06:59 PM EDT History and Physical Notes * HPI (History of Present Illness) Category Sub-Category Detail Notes COVID-19 Screening Questions Have you had any new onset fever, chills, cough, congestion, sore throat, shortness of breath, muscle aches?: No Examination Category Sub-Category Detail Notes General Examination GENERAL APPEARANCE: pleasant , well nourished, well developed, in no acute distress, calm and relaxed: overweight: woman HEAD: atraumatic, normocep halic EYES: eomi, perrla, anicte yoli, conjugate EARS: normal NOSE: septum intact NECK/THYROID: no jugular venous di stention, no carotid bruit, thyroid normal HEART: no clicks, gallops, murmurs, or rubs, regular rhythm, S1, S2 normal, no s3, or vascular bruits LUNGS: clear to auscultatio n ABDOMEN: bowel sounds normal, no ascites, no organomegaly, no mass: overweight NEUROLOGIC: alert and oriented, cranial nerves 2-12 grossly intact, deep tendon reflexes 2+ symmetrical, motor strength normal upper and lower extremities, sensory exam intact SKIN: no suspicious lesion s, anicteric PERIPHERAL PULSES: normal BREASTS: Not examined MUSCULOSKELETAL: extremities unremark able, no clubbing, cyanosis or edema, Large ecchymosis skin over right knee laterally yellowish-green in the center of which is a 3 cm hematoma under the skin, 2 mm laceration tip of left first toe oozing bright red blood LYMPH NODES: no enlarged lymph no bhavna,spleen normal RECTAL EXAM: not examined PSYCH: alert, oriented ORAL CAVITY: normal, unremarkable Consultation Request Notes Referral Date Referring Provider Referred Provider Not es 01/14/2025 Bravo Antonio diabetic to[facility] evaluate and treatment
--- OUTSIDE RECORDS SUMMARY | 2025-01-19 06:45 | XMS_ITS ---
Author Organization Bravo Antonio III, MD Address [address] [place] [address] [place] [address] Care Team Providers Care Paste Plant Supervisor Name Role Phone Dr. Bravo Antonio III Primary Care Provider REASON FOR VISIT FYI Social History Sex Assigned At : Social History Observation Description Sex Assigned At Female Encounters Encounter Location Date Provider Diagnosis Bravo Antonio III, MD [address] [place] [address] [place] [address] 01/19/2025 Bravo Antonio Plan Of Treatment Next Appt Details Provider Name:Bravo Antonio , 03/25/2025 02:00:00 PM, [address] [place] [address] [place], [phone], Progress Notes * Warner METCALFHowardB: [birth year] (69 yo F)Acc No.[id number]:01/19/2025 Patient: Krupa DANIEL :1955 A ge:69 Y S ex:Female Address:[address] [place] [phone] * true * Date: [facility]ax[facility]/eTransmitting on: 07:02 PM EDT
--- OUTSIDE RECORDS SUMMARY | 2025-01-30 09:29 | XMS_ITS ---
Author Organization Bravo Antonio III, MD Address [address] [place] [address] [place] [address] Care Team Providers Care Mechanical Maintenance Supervisor Name Role Phone Dr. Bravo Antonio III Primary Care Provider REASON FOR VISIT Questions Social History Sex Assigned At : Social History Observation Description Sex Assigned At Female Encounters Encounter Location Date Provider Diagnosis Bravo Antonio III, MD [address] [place] [address] [place] [address] 01/30/2025 Bravo Antonio Plan Of Treatment Next Appt Details Provider Name:Bravo Antonio , 03/25/2025 02:00:00 PM, [address] [place] [address] [place], [phone], Progress Notes * Warner METCALFaDOB: [birth year] (69 yo F)Acc No.[id number]:01/30/2025 Patient: Krupa DANIEL :1955 A ge:69 Y S ex:Female Address:[address] [place] [phone] * true * Date: [facility]/Fax[facility]/eTransmitting on: 07:00 PM EDT
--- NOTE | 2025-02-03 14:09 | MHC.OFFVIS ---
Intake Visit Reasons: 1 yr Accompanied by: Friend Allergies oxycodone (OXYCODONE) Allergy (Intermediate, Verified 02/03/25 14:17) DIZZY/NAUSEA Medication List - Last Reconciled 02/03/25 by Jennifer Crespo CNP atenolol 100 mg PO DAILY bupropion HCl 100 mg PO DAILY ibuprofen 800 mg PO Q8H metformin 500 mg PO DAILY ropinirole 1 mg PO BID sertraline 100 mg PO Q24H simvastatin 40 mg PO BEDTIME warfarin (Jantoven) 5 mg PO DAILY HPI Comments Details: She was doing okay. RLS symptoms were well controlled with ropinorole. If she missed medication for 2 days, symptoms returned. No significant tremors. She walking with cane, no recent falls. Has intermittent tremors from time to time and then can be fine for months or more. Living alone. She has h/o RLS symptoms controlled with meds. She had L3-4 fracture spontaneously in August 2018 and was in a [place] rehab facility till she had kyphoplasty. She had trouble lifting her right foot and leg while driving when she wants to move from accelerator to brake and vice versa. [facility] Medical History (Updated 02/03/25 @ 14:17 by Jennifer Crespo CNP) Tubular adenoma of colon On anticoagulant therapy Hx of pulmonary embolus Anxiety and depression Hyperlipidemia Hypertension Irritable bowel syndrome with diarrhea Surgical History H/O esophagogastroduodenoscopy H/O colonoscopy Family History Father Hypertension Macular degeneration Mother Polio Diabetes Hypertension Maternal Grandmother Cancer Social History Household Members: Friend(s) Housing: House Alcohol intake: current Alcohol intake frequency: does not drink Review of Systems Const Denies chills, Denies daytime sleepiness, Reports difficulty sleeping, Denies fatigue, Denies fever(s), Denies frequent falls, Denies headache(s), Denies increased appetite, Denies poor appetite, Denies snoring, Denies weakness, Denies weight gain and Denies weight loss Eyes Denies loss of vision ENT Denies vertigo, Denies dizziness, Denies headache(s) and Denies neck pain Card Denies chest pain at rest, Denies chest pain with activity, Denies syncope, Denies leg edema, Denies palpitations, Denies dyspnea and Denies dyspnea on exertion Resp Denies cough, Denies dyspnea, Denies dyspnea on exertion and Denies snoring GI Denies abdominal pain, Denies constipation, Denies heartburn, Denies diarrhea and Denies nausea Denies urinary frequency, Denies urinary incontinence and Denies urinary urgency Musc Denies abnormal gait, Denies back pain, Denies myalgias, Denies arthralgias, Denies neck pain, Reports numbness and Reports tingling Neuro Denies abnormal gait, Denies vertigo, Denies dizziness, Denies syncope, Denies frequent falls, Denies headache(s), Denies lack of coordination, Denies loss of vision, Denies memory loss, Reports numbness, Denies Other visual disturbances, Reports restless legs, Denies seizure-like activity, Reports tingling, Denies paresthesias, Denies tremor(s) and Denies weakness Psych Reports anxiety, Denies depression, Denies auditory hallucinations, Denies memory loss and Denies visual hallucinations Endo Denies fatigue and Denies palpitations Physical Exam Const Other: General Appearance:? normal, in no acute distress. Heart:? S1, S2 normal, no murmurs. Lungs:? clear anteriorly and posteriorly. Musculoskeletal:? normal. Extremities:? no edema. Psych:? alert, oriented, cognitive function intact, cooperative with exam. Neuro Other: Abnormal Neurological Findings:?Blunting of pinprick sensation and vibration in the toes bilaterally. Hyporeflexia at ankles 0-1+, KJ 1-2+. Slow and cautious with cane. Mental Status: alert and oriented X 3. Normal attention, orientation, memory, and affect. Cranial Nerves: Pupils are equal, round, and reactive to light. External ocular muscles are intact. Visual mehta are full, no ptosis. Face is symmetrical, no facial weakness or droop. Facial sensations are normal. Tongue protrudes in midline. Palate elevates symmetrically. Shoulder shrugging is normal Motor Examination: As above. Sensory Exam: As above. Coordination: No ataxia. No titubation. Gait Exam: Slow and cautious with cane. Cerebellar Signs: [id number] is okay. Extrapyramidal System: No tremor, rigidity with normal facial expressions. No bradykinesia. No bradyphrenia. Normal arm swing and posture. No propulsion or retropulsion. Speech: Normal. Results Reviewed Results Reviewed: NCV/EMG LE 01/07/14 MILD AXONAL LOSS IN THE MOTOR AND SENSORY NERVES IN THE LOWER EXTREMITIES WITH BORDERLINE SLOW NERVE CONDUCTIONS ESSENTIALLY UNCHANGED FROM THE STUDY OF 12/11/11. NORMAL EMG OF THE RIGHT L4-S1 INNERVATED MUSCLES.. 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 EMG findings consistent with distal neuropathy.. 12/03/22 NCV shows mild axonal and demyelinative neuropathy unchanged from before (asymptomatic currently). Assessment & Plan Assessment & Plan (1) Restless leg syndrome: Code(s): G25.81 - Restless legs syndrome Category: Medical Plan: Continue ropinorole 1mg 1 tablet in the evening and 1 tablet at bedtime. (2) Sensory neuropathy: Code(s): G62.9 - Polyneuropathy, unspecified Category: Medical (3) Chronic low back pain with left-sided sciatica: Code(s): M54.42 - Lumbago with sciatica, left side; G89.29 - Other chronic pain Category: Medical Qualifiers: Back pain laterality: unspecified Qualified Code(s): M54.42 - Lumbago with sciatica, left side; G89.29 - Other chronic pain Plan . Medications: Changed From ropinirole 1 mg PO BID To ropinirole 1 mg orally 1 tablet in the evening and 1 tablet at bedtime; 180 tabs 3RF 90 days Coding Level of Care Code Est Pt Level 3 (68006) Diagnoses Restless leg syndrome G25.81 Sensory neuropathy G62.9 Chronic low back pain with left-sided sciatica, unspecified back pain laterality M54.42; G89.29 Back pain laterality: unspecified
--- OUTSIDE RECORDS SUMMARY | 2025-02-03 19:01 | XMS_ITS | Patient Health Record ---
Author Organization Bravo Antonio III, MD Address [address] [place] [address] [address] [place] [address] Care Team Providers Care Warehouse Shipping Clerk Name Role Phone Dr. Bravo Antonio III [...] Provider Specialty Podiatry General Notes Elsy Sommers [employer] 01/15 01:51:42 PM > pt will make her own appt and call office with who she is going to then the referral will be faxed to them Referral Priority Routine Medications Medication SIG (Take, Route, Frequency, Duration) Notes Start Date End Date Status Fluticasone Propionate 50 MCG/ACT 1 spray in each nostril Nasally Twice a day Active Probiotic 1-250 BILLION-MG as directed Orally Active Atenolol 100 MG TAKE ONE TABLET BY M OUTH EVERY DAY Active Omeprazole 20 MG 1 capsule 30 minutes before morning meal Orally Once a day Active Loperamide HCl 2 MG 1 capsule Orally Four times a day As needed 07/11/2024 Active Simvastatin 40mg one tablet Orally 2 tablets (80mg) daily Active rOPINIRole HCl 1 MG 1 tablet 1 to 3 hour s before bedtime Orally Once a day Active Sertraline HCl 100 MG 3 tablets`` Orally Once a day 05/16/2023 Active Jantoven 5 MG TAKE ONE TABLET BY M OUTH EVERY DAY Active buPROPion HCl ER (XL) 300 MG 1 tablet in the morning Orally Once a day 05/16/2023 Active metFORMIN HCl 500 MG TAKE ONE TABLET BY MOUTH EVERY DAY Active ibuprofen 1 tab Oral Active Vitamin D 1000 UNIT 1 tablet Orally Once a day 01/20/2019 Active Latanoprost 0.005 % INSTILL ONE DROP IN EACH EYE AT BEDTIME Ophthalmic Active Warfarin Sodium 5mg 1 tablet Orally Once a day Active Immunizations Vaccine Route Administration Date Status Comme nts Influenza IM Intramuscular 03/26/2014 Administered Tetanus and Diphtheria Toxoids Adsorbed IM Intramuscular 12/09/2014 Administered Influenza IM Intramuscular 03/02/2015 Administered Influenza IM Intramuscular 01/12/2016 Administered Influenza no Preserv 3 and > IM Intramuscular 02/15/2017 Administered Influenza no Preserv 3 and > IM Intramuscular 04/03/2019 Administered COVID- 19 Vaccine IM Intramuscular 11/12/2020 Administered 1st dose Pfizer Tdap Unknown 08/25/2022 Administered COVID PFIZER Unknown 12/03/2020 Administered Influenza Vaccine Afluria IM Intramuscular 01/04/2024 Administered Social History Tobacco Use: Social History Observation Description Date Details (start date - stop date) Never Smoker NA - NA Sex Assigned At : Social History Observation Description Sex Assigned At Female Tobacco Use/Smoking Question Answer Notes Patient is a nonsmoker Additional Findings: Tobacco Non-User Aggressive non-smoker Alcohol Screen Question Answer Notes Did you have a drink containing alcohol in the p ast year? No Points 0 Interpretation Negative Problems Problem Type SNOMED Code ICD Code Onset Dates Problem Status W/U Status Risk Notes Problem 673017787 Overweight (BMI 25.0-29.9) (E66.3) Active confirmed She has lost 6 pounds and is now overweight, not obese. Her body mass index is 29. We discussed ways for which she could continue her weight loss. Problem 294085515 Lumbar radiculopathy (M54.16) Active confirmed The back pain i s present but better. It is slowly improving and she is able to conduct all of the activities of daily living. Problem 105097657 Thrombocytopeni a (D69.6) Active confirmed The platelet count in May 2022 152,000. She has had no bleeding and is doing well. Problem Vitamin D deficiency (55039151) Vitamin D deficiency, unspecified (E55.9) Active confirmed She was continued on her supplementation. Problem 20229320330996195 Contusion of right knee, initial encounter (S80.01XA) Active confirmed She is unaware of any trauma to the right knee area. There is a large ecchymosis and subcutaneous hematoma in this anticoagulated patient. She will observe it without treatment at this time. It iss expected to resolve slowly. She was reassured. Problem 313721257 Chronic anticoagulation (Z79.01) Active confirmed She continues o n anticoagulation with no bleeding. She has had no further episodes of venous thromboembolism. Problem 92255259 Essential hypertension (I10) Active confirmed Her blood pressure today was 140/80. She has lost 6 pounds. We discussed sodium restriction. Her current medications were continued. On appointment given her to return to the office after a brief follow-up to measure her blood pressure again. Problem 90487626 Glaucoma (H40.9) Active confirmed She will continue to follow the advice of her hr assistant. She is up-to-date with these visits. Problem 79392167 Depressive disorder, not elsewhere classified (F32.9) Active confirmed She sounds more so frail I and and less depressed. She says she has been compliant with her medications and her visits to her psychiatrist. She does not sound suicidal today. She denies any intention of harming herself. Problem Hypothyroid (41097259) Hypothyroid (E03.9) Active confirmed She appears to be euthyroid. Thyroid function tests were ordered today. Problem 767880119 Thrombophilia (D68.59) Active confirmed She has been compliant with her anticoagulant. She has had no venous thromboembolism since her last visit. She has no chest pain and only mild shortness of breath. She has had no bleeding. Current therapy was continued. Problem 355590843 History of pulmonary embolism (Z86.711) Active confirmed She has had no pulmonary symptoms cough or pleuritic chest pain recently. She is comfortable breathing room air. Problem Pure hypercholesterole abdelrahman (276808532) Hyperlipidemia type II (E78.01) Active confirmed She has lost 6 pounds. Comprehensive blood work with fasting lipid profile was ordered today. Problem 360580946 Type 2 diabetes mellitus without complication, without long-term current use of insulin (E11.9) Active confirmed She has been compliant with her medications. She has lost 6 pounds. Comprehensive blood work including a hemoglobin A1c and microalbumin and fasting glucose and lipid profile were ordered today. Problem [id number] Laceration of left great toe without foreign body with damage to nail, initial encounter (S91.212A) Active confirmed She accidentall y cut the skin instead of her toenail [...] need cauterization. I have continued the anticoagulation. Vital Signs Heart Rate 71 /min 01/14/2025 Temperature 98.2 degrees Fahrenheit 01/14/2025 Respiratory Rate 16 /min 10/08/2024 Oximetry 96 % 10/08/2024 Blood pressure diastolic 83 mm Hg 01/14/2025 Height 74 in 01/14/2025 Blood pressure systolic 133 mm Hg 01/14/2025 Weight 222 lbs 01/14/2025 BMI 28.5 kg/m2 01/14/2025 Encounters Encounter Location Date Provider Diagnosis Bravo Antonio III, MD [address] [place] [address] [place] [address] 05/30/2024 Bravo Antonio Tooth ache K08.89 ; Essential hypertension I10 ; Chronic anticoagulation Z79.01 ; Thrombophilia D68.59 ; Depressive disorder, not elsewhere classified F32.9 and Lumbar radiculopathy M54.16 Bravo Antonio III, MD [address] [place] [address] [place] [address] 06/16/2024 Bravo Antonio Thrombophilia D68.59 ; Essential hypertension I10 ; Chronic anticoagulation Z79.01 ; Depressive disorder, not elsewhere classified F32.9 ; Lumbar radiculopathy M54.16 and Obesity E66.9 Bravo Antonio III, MD [address] [place] [address] [place] [address] 10/08/2024 Bravo Antonio Essential hypertensi on I10 ; Type 2 diabetes mellitus without complication, without long-term current use of insulin E11.9 ; Hypothyroid E03.9 ; Hyperlipidemia type II E78.01 ; Overweight (BMI 25.0-29.9) E66.3 and Vitamin D deficiency, unspecified E55.9 Bravo Antonio III, MD [address] [place] [address] [place] [address] 01/14/2025 Bravo Antonio Laceration of left g [...] use of insulin E11.9 and Hypothyroid E03.9 Bravo Antonio III, MD [address] [place] [address] [place] [address] 04/10/2024 Bravo Antonio III, MD [address] [place] [address] [place] [address] 07/11/2024 Bravo Antonio III, MD [address] [place] [address] [place] [address] 09/04/2024 Bravo Antonio III, MD [address] [place] [address] [place] [address] 09/29/2024 Bravo Antonio III, MD [address] [place] [address] [place] [address] 10/03/2024 Bravo Antonio III, MD [address] [place] [address] [place] [address] 12/11/2024 Bravo Antonio III, MD [address] [place] [address] [place] [address] 01/19/2025 Bravo Antonio III, MD [address] [place] [address] [place] [address] 01/30/2025 Bravo Antonio Assessments Encounter Date Diagnosis (ICD Code) Assessment Notes T reatment Notes Treatment Clinical Notes 05/30/2024 Essential hypertensi on (ICD-10 - I10) Her blood pressure has been slightly high. This was slightly elevated but she seems stressed. No change in her medications was made. We discussed her diet at length.I recommended aggressive weight loss strategies and sodium restriction Shejohn was given an appointment in the office to have it checked. 05/30/2024 Tooth ache (ICD-10 - K08.89) Her dentist's office told her she could not be seen until next week and that they would not prescribe pain medication according to her. I have given her a supply of Tylenol with Codeine to take every 6 hours as needed over the upcoming 3 day weekend. She was given instructions to call me if her pain was not controlled. 06/16/2024 Essential hypertensi on (ICD-10 - I10) Her blood pressure has returned to normal.No change in her medications was made. We discussed her diet at length.I recommended aggressive weight loss strategies and sodium restriction Mariangel was given an appointment in the office to have it checked. 06/16/2024 Thrombophilia (ICD-1 0 - D68.59) She has been compliant with her anticoagulant. She has had no venous thromboembolism since her last visit. She has no chest pain and only mild shortness of breath. She has had no bleeding. Current therapy was continued. 10/08/2024 Essential hypertensi on (ICD-10 - I10) Her [...] and lipid profile were ordered today. 01/14/2025 Contusion of right knee, initial encounter (ICD-10 - S80.01XA) She is unaware of any trauma to the right knee area. There is a large ecchymosis and subcutaneous hematoma in this anticoagulated patient. She will observe it without treatment at this time. It iss expected to resolve slowly. She was reassured. 01/14/2025 Laceration of left great toe without [...] need cauterization. I have continued the anticoagulation. 05/30/2024 Chronic anticoagulation (ICD-10 - Z79.01) She continues on anticoagulation with no bleeding. She has had no further episodes of venous thromboembolism. 06/16/2024 Chronic anticoagulation (ICD-10 - Z79.01) She continues on anticoagulation with no bleeding. She has had no further episodes of venous thromboembolism. 10/08/2024 Hypothyroid (ICD-10 - E03.9) She appears to be euthyroid. Thyroid function tests were ordered today. 01/14/2025 Thrombophilia (ICD-1 0 - D68.59) She has been compliant with her anticoagulant. She has had no venous thromboembolism since her last visit. She has no chest pain and only mild shortness of breath. She has had no bleeding. Current therapy was continued. 05/30/2024 Thrombophilia (ICD-1 0 - D68.59) She has been compliant with her anticoagulant. She has had no venous thromboembolism since her last visit. She has no chest pain and only mild shortness of breath. She has had no bleeding. Current therapy was continued. 06/16/2024 Depressive disorder, not elsewhere classified (ICD-10 - F32.9) She sounds more so frail I and and less depressed. She says she has been compliant with her medications and her visits to her psychiatrist. She does not sound suicidal today. She denies any intention of harming herself. 10/08/2024 Hyperlipidemia type II (ICD-10 - E78.01) She has lost 6 pounds. Comprehensive blood work with fasting lipid profile was ordered today. 01/14/2025 Chronic anticoagulation (ICD-10 - Z79.01) She continues on anticoagulation with no bleeding. She has had no further episodes of venous thromboembolism. 05/30/2024 Depressive disorder, not elsewhere classified (ICD-10 - F32.9) She sounds more so frail I and and less depressed. She says she has been compliant with her medications and her visits to her psychiatrist. She does not sound suicidal today. She denies any intention of harming herself. 06/16/2024 Lumbar radiculopathy (ICD-10 - M54.16) The back pain is present but better. It is slowly improving and she is able to conduct all of the activities of daily living. 10/08/2024 Overweight (BMI 25.0-29.9) (ICD-10 - E66.3) She has lost 6 pounds and is now overweight, not obese. Her body mass index is 29. We discussed ways for which she could continue her weight loss. 01/14/2025 Depressive disorder, not elsewhere classified (ICD-10 - F32.9) She sounds more so frail I and and less depressed. She says she has been compliant with her medications and her visits to her psychiatrist. She does not sound suicidal today. She denies any intention of harming herself. 05/30/2024 Lumbar radiculopathy (ICD-10 - M54.16) The back pain is present but better. It is slowly improving and she is able to conduct all of the activities of daily living. 06/16/2024 Obesity (ICD-10 - E66.9) Her weight has been stable. Her body mass index is 30.1. I recommended weight reduction. She is not able to exercise this time as I have recommended rest. We discussed a nutritious diet restricted in fat calories in sodium. 10/08/2024 Vitamin D deficiency , unspecified (ICD-10 - E55.9) She was continued on her supplementation. 01/14/2025 Essential hypertensi on (ICD-10 - I10) [...] tests were ordered today. Plan Of Treatment Pending Test Test Name Order Date PROFILE, FASTING (COMPREHENSIVE METABOLI C) 01/20/2019 PROFILE, FASTING (COMPREHENSIVE METABOLI C) 09/19/2017 PROFILE, FASTING (COMPREHENSIVE METABOLI C) 12/31/2020 PROFILE, FASTING (COMPREHENSIVE METABOLI C) 08/01/2021 PROFILE, FASTING (COMPREHENSIVE METABOLI C) 05/30/2022 PROFILE, FASTING (COMPREHENSIVE METABOLI C) 05/03/2021 PROFILE, FASTING (COMPREHENSIVE METABOLI C) 01/24/2022 PROFILE, FASTING (COMPREHENSIVE METABOLI C) 12/08/2022 PROFILE, FASTING (COMPREHENSIVE METABOLI C) 11/15/2021 PROFILE, FASTING (COMPREHENSIVE METABOLI C) 11/07/2022 PROFILE, FASTING (COMPREHENSIVE METABOLI C) 10/08/2024 PROFILE, FASTING (COMPREHENSIVE METABOLI C) 03/13/2023 PROFILE, FASTING (COMPREHENSIVE METABOLI C) 03/19/2018 PROFILE, FASTING (COMPREHENSIVE METABOLI C) 09/14/2020 PROFILE, FASTING (COMPREHENSIVE METABOLI C) 12/21/2017 PROFILE, FASTING (COMPREHENSIVE METABOLI C) 07/08/2019 PROFILE, FASTING (COMPREHENSIVE METABOLI C) 06/16/2024 PROFILE, FASTING (COMPREHENSIVE METABOLI C) 05/24/2020 PROFILE, FASTING (COMPREHENSIVE METABOLI C) 01/14/2025 PROFILE, FASTING (COMPREHENSIVE METABOLI C) 01/04/2024 PROFILE, RANDOM (COMPREHENSIVE METABOLIC ) 06/27/2023 PROFILE, RANDOM (COMPREHENSIVE METABOLIC ) 02/16/2020 PROFILE, RANDOM (COMPREHENSIVE METABOLIC ) 02/09/2023 HEMOGLOBIN A1C (GLYCOHEMOGLOBIN) 021 HEMOGLOBIN A1C (GLYCOHEMOGLOBIN) 022 HEMOGLOBIN A1C (GLYCOHEMOGLOBIN) 023 HEMOGLOBIN A1C (GLYCOHEMOGLOBIN) 022 HEMOGLOBIN A1C (GLYCOHEMOGLOBIN) 022 HEMOGLOBIN A1C (GLYCOHEMOGLOBIN) 023 HEMOGLOBIN A1C (GLYCOHEMOGLOBIN) 022 HEMOGLOBIN A1C (GLYCOHEMOGLOBIN) 023 HEMOGLOBIN A1C (GLYCOHEMOGLOBIN) 020 HEMOGLOBIN A1C (GLYCOHEMOGLOBIN) 020 MAGNESIUM 03/19/2018 LIPID PANEL 05/24/2020 LIPID PANEL 03/19/2018 LIPID PANEL 07/08/2019 LIPID PANEL 01/20/2019 LIPID PANEL 09/19/2017 LIPID PANEL 08/01/2021 LIPID PANEL 05/30/2022 LIPID PANEL 12/08/2022 LIPID PANEL 11/15/2021 LIPID PANEL 11/07/2022 LIPID PANEL 02/16/2020 LIPID PANEL 09/14/2020 LIPID PANEL 12/21/2017 FREE T4 (FT4) 01/04/2024 FREE T4 (FT4) 12/21/2017 FREE T4 (FT4) 03/19/2018 TSH (THYROID STIMULATING HORMONE) 2023 TSH (THYROID STIMULATING HORMONE) 2017 TSH (THYROID STIMULATING HORMONE) 2023 TSH (THYROID STIMULATING HORMONE) 2017 TSH (THYROID STIMULATING HORMONE) 2024 MICROALBUMIN, RANDOM 11/15/2021 MICROALBUMIN, RANDOM 11/07/2022 MICROALBUMIN, RANDOM 02/16/2020 MICROALBUMIN, RANDOM 12/08/2022 MICROALBUMIN, RANDOM 12/31/2020 MICROALBUMIN, RANDOM 05/03/2021 MICROALBUMIN, RANDOM 08/01/2021 MICROALBUMIN, RANDOM 05/30/2022 CBC w DIFF 05/03/2021 CBC w DIFF 06/16/2024 CBC w DIFF 01/14/2025 CBC w DIFF 09/14/2020 CBC w DIFF 08/01/2021 CBC w DIFF 05/30/2022 CBC w DIFF 05/24/2020 CBC w DIFF 11/15/2021 CBC w DIFF 11/07/2022 CBC w DIFF 02/16/2020 CBC w DIFF 07/08/2019 CBC w DIFF 01/20/2019 CBC w DIFF 12/08/2022 CBC w DIFF 12/21/2017 CBC w DIFF 09/19/2017 CBC w DIFF 03/19/2018 CBC w DIFF 01/24/2022 CBC w DIFF 12/31/2020 CBC w DIFF 10/08/2024 SED RATE (ESR) 06/27/2023 SED RATE (ESR) 02/09/2023 PROTHROMBIN TIME (PT, INR) 06/17/2020 PROTHROMBIN TIME (PT, INR) 10/01/2019 PROTHROMBIN TIME (PT, INR) 06/29/2020 PROTHROMBIN TIME (PT, INR) 05/24/2020 PROTHROMBIN TIME (PT, INR) 04/12/2020 PROTHROMBIN TIME (PT, INR) 06/30/2020 PROTHROMBIN TIME (PT, INR) 04/21/2020 PROTHROMBIN TIME (PT, INR) 05/06/2020 PROTHROMBIN TIME (PT, INR) 05/20/2020 URINALYSIS (UA) 02/16/2020 URINE CULTURE 02/16/2020 XR LUMBAR SPINE 12/25/2018 BONE DENSITY DEXA 12/25/2018 MAMMOGRAM DIGITAL BILATERAL SCREEN 10/31 VITAMIN D 25-OH TOTAL 08/01/2021 VITAMIN D 25-OH TOTAL 05/30/2022 VITAMIN D 25-OH TOTAL 05/24/2020 VITAMIN D 25-OH TOTAL 01/20/2019 VITAMIN D 25-OH TOTAL 03/19/2018 CBC WITH AUTO DIFF 02/09/2023 CBC WITH AUTO DIFF 01/04/2024 CBC WITH AUTO DIFF 06/27/2023 CBC WITH AUTO DIFF 03/13/2023 Lipid Panel 01/24/2022 Lipid Panel 12/31/2020 Lipid Panel 10/08/2024 Lipid Panel 06/16/2024 Lipid Panel 05/03/2021 Lipid Panel 01/14/2025 Lipid Panel 01/04/2024 Lipid Panel 03/13/2023 Vitamin D 25-OH Total 12/31/2020 Vitamin D 25-OH Total 06/16/2024 Free T4 (Free Thyroxine) 10/08/2024 Microalbumin, Random 01/24/2022 Microalbumin, Random 01/14/2025 Microalbumin, Random 10/08/2024 CDiff with Reflex to PCR 02/09/2023 Hemoglobin A1c 01/14/2025 Hemoglobin A1c 10/08/2024 Stool Culture 02/09/2023 Next Appt Details Provider Name:Bravo Antonio , 03/25/2025 02:00:00 PM, [address] [facility] [address], [place], [address], Insurance Providers Payer Name Payer Address Payer Phone Subscriber Number Group Number Insured Name Patient Relationship to Insured Coverage Start Date Coverage End Date [employer] [address] [place], [place] [id number] [phone] [id number] [facility] [place] Self - patient is the insured MEDICARE NGS [address] [place] [id number] [facility] [place] Self - patient is the insured Medical (General) History Medical History History ICD Code pulmonary embolism/thrombophilia hypertension depression glaucoma [id number] hyperlipidemia last mammogram 09/26/12 Fernandez Hyperlipidemia type II E78.0 Restless leg syndrome Surgical History Surgery Date(Month/Year) No history cataract surgery both eyes 04/2019 extraction wisdom teeth Hospitalization History Reason Date(Month/Year) No history Kidney stone 03/2020
== END 2025-02-03 14:30 | disposition home or self-care (01) ==
LOC: HO.HSM 14:08
PROVIDERS: PCP Internal Medicine Medical Oncology; Referring Provider Internal Medicine Medical Oncology; Visit Provider Registered Nurse
DX: G25.81 Restless legs syndrome (principal); G62.9 Polyneuropathy, unspecified; M54.42 Lumbago with sciatica, left side; G89.29 Other chronic pain
CPT/HCPCS: 99213

== ENCOUNTER → 2025-02-03 14:08 | Outpatient (BNVA) | payer MEDICARE, SELFPAY | PROVIDERS: PCP Internal Medicine Medical Oncology; Referring Provider Internal Medicine Medical Oncology; Visit Provider Registered Nurse | DX: G25.81 Restless legs syndrome (principal); G62.9 Polyneuropathy, unspecified; M54.42 Lumbago with sciatica, left side; G89.29 Other chronic pain | CPT/HCPCS: 99212 ==